=== PATIENT | female | born 2000 | race Hispanic/Latino ===

== ENCOUNTER 2025-07-11 17:56 | Inpatient (IN) | payer MEDICAID, OTHER ==
[~2025-07-11 17:56] MED LIST: Lidocaine 2% 10 ML INJ ONE
[2025-07-11] MEDS ORDERED: Diphenoxylate HCl/Atropine Tablet PO PRN (19:29)
[2025-07-11] MEDS ORDERED: Lidocaine 1% (PF) 30 ML VIAL SC PRN (19:29)
[2025-07-11] MEDS ORDERED: Ondansetron PF 4 MG/2 ML Vial IVP PRN (19:29)
[2025-07-11] MEDS ORDERED: Carboprost 250 MCG/ML AMP IM PRN (19:29)
[2025-07-11] MEDS ORDERED: Methylergonovine 0.2 MG/ML VIAL IM PRN (19:29)
[2025-07-11] MEDS ORDERED: Tranexamic Acid 1,000 MG/10 ML VIAL IVP PRN (19:29)
[2025-07-11] MEDS ORDERED: Acetaminophen 500 MG TAB PO PRN (19:29)
[2025-07-11] MEDS ORDERED: Calcium Gluc 4.6 MEQ/10 ML (100 MG/ML) SLOW IVP PRN (19:29)
[2025-07-11] MEDS ORDERED: Oxytocin 30 units/NS 500 ML 500 ML IV SCH ×2 (19:30)
[2025-07-11] MEDS ORDERED: HYDROcodone/Acetaminophen 5/325 mg Tablet PO PRN (19:34)
[2025-07-11] MEDS ORDERED: hydrALAZINE 20 MG/ML VIAL SLOW IVP PRN ×2 (19:34)
[2025-07-11] MEDS ORDERED: Ibuprofen 800 MG TAB PO PRN (19:34)
[2025-07-11 20:07] VITALS: BMI 33.8
[2025-07-11 20:17] LABS: Hematocrit 32.0 % (34.9-44.5); Hemoglobin 10.8 g/dL (12.0-15.5); Mean Corpuscular Hemoglobin 26.5 pg (27.0-33.0); Mean Corpuscular Volume 78.6 fL (81.6-98.3); Platelet Count 183 10x3/uL (150-450); Red Blood Cell (RBC) Count 4.07 10x6/uL (3.90-5.03); White Blood Cell (WBC) Count 8.00 10x3/uL (3.5-10.5)
[2025-07-11 20:28] LABS: ALT (SGPT) 10 U/L (Less than 34); AST (SGOT) 14 U/L (11-34); Albumin 2.7 g/dL (3.1-4.5); Alkaline Phosphatase 184 U/L (40-110); Anion Gap 15 mmol/L (10-20); BUN (Urea Nitrogen) 12 mg/dL (7.0-18.7); Bilirubin, Total 0.2 mg/dL (0.3-1.2); Calc. Creatinine Clearance 141 mL/min (70-130); Calcium 8.7 mg/dL (7.8-10.44); Carbon Dioxide 19 mmol/L (22-29); Chloride 107 mmol/L (98-107); Globulin 3.0 g/dL (2.4-3.5); Glucose 133 mg/dL (70-105); Potassium 4.2 mmol/L (3.5-5.1); Sodium 137 mmol/L (136-145)
[2025-07-11 21:42] LABS: Hep B Surf Ag - L&D Non-Reactive S/CO (NonReactive)
[2025-07-11 22:14] LABS: Syphilis Antibody Index 0.07 S/CO (<1.00 Non-Reactive)
[2025-07-12] MEDS ORDERED: Penicillin G Potassium 5 MILL.UNITS in Sodium Chloride 0.9% 100 ML IVPB SCH (06:00)
[2025-07-12] MEDS: hydrALAZINE 20 MG/ML VIAL SLOW IVP PRN (06:51)
[2025-07-12] MEDS: Penicillin G 2.5 MILL.units 2.5 MILL.UNITS in Premix 1 BAG IVPB SCH (16:00)
[2025-07-12] MEDS: fentaNYL/Ropivacaine Epidural 100 ML ONE (16:50)
[2025-07-12] MEDS ORDERED: Ondansetron PF 4 MG/2 ML Vial IVP PRN ×2 (17:47→23:31)
[2025-07-12] MEDS ORDERED: diphenhydrAMINE 50 MG/ML VIAL IVP PRN (17:47)
[2025-07-12] MEDS ORDERED: Communication Order-Pharmacy FS SCH (18:00)
[2025-07-12] MEDS ORDERED: fentaNYL 2 mcg/Ropivacaine 0.2% Epidural 100 ML CADD EPIDURAL SCH (18:00)
[2025-07-12] MEDS: Magnesium Sulfate 20 gm/500 ml 20 GM/500 ML BAG ONE ×2 (19:51)
[2025-07-12] MEDS: Penicillin G Potassium 5 MILL.UNITS VIAL ONE (19:51)
[2025-07-12] MEDS ORDERED: Magnesium Sulfate 20 gm/500 ml 4 GM/100 ML BAG IVPB SCH (20:15)
[2025-07-12] MEDS ORDERED: Lanolin Ointment 7 GM TUBE TOP PRN (23:31)
[2025-07-12] MEDS ORDERED: diphenhydrAMINE 25 MG CAP PO PRN (23:31)
[2025-07-12] MEDS ORDERED: hydrALAZINE 20 MG/ML VIAL SLOW IVP PRN ×2 (23:31)
[2025-07-12] MEDS ORDERED: Milk Of Magnesia 30 ML UDCUP PO PRN (23:31)
[2025-07-12] MEDS ORDERED: Bisacodyl 10 MG SUPP PR PRN (23:31)
[2025-07-12] MEDS ORDERED: Calcium Gluc 4.6 MEQ/10 ML (100 MG/ML) SLOW IVP PRN (23:31)
[2025-07-13] MEDS: Acetaminophen 325 MG TAB PO PRN (01:01)
[2025-07-13] MEDS: Ibuprofen 800 MG TAB PO SCH (04:10)
[2025-07-13] MEDS: Magnesium Sulfate 20 gm/500 ml 20 GM/500 ML BAG IVPB SCH (04:11)
[2025-07-13 05:20] LABS: ALT (SGPT) 10 U/L (Less than 34); AST (SGOT) 15 U/L (11-34); Albumin 2.2 g/dL (3.1-4.5); Alkaline Phosphatase 131 U/L (40-110); Anion Gap 13 mmol/L (10-20); BUN (Urea Nitrogen) 8 mg/dL (7.0-18.7); Bilirubin, Total 0.4 mg/dL (0.3-1.2); Calc. Creatinine Clearance 165 mL/min (70-130); Calcium 6.9 mg/dL (7.8-10.44); Carbon Dioxide 19 mmol/L (22-29); Chloride 105 mmol/L (98-107); Globulin 2.8 g/dL (2.4-3.5); Glucose 113 mg/dL (70-105); Magnesium 6.6 mg/dL (1.6-2.6); Potassium 4.1 mmol/L (3.5-5.1); Sodium 133 mmol/L (136-145)
[2025-07-13] MEDS: Ferrous Sulfate 325 MG TAB PO SCH (19:08)
[2025-07-14] MEDS: Benzocaine-Menthol 82.5 ML CAN TOP PRN (08:45)
[2025-07-14] MEDS: HYDROcodone/Acetaminophen 5/325 mg Tablet PO PRN (08:46)
[2025-07-14 15:38] VITALS: BP 120/60; TEMP 98.2
== END 2025-07-14 18:48 | disposition home or self-care (01) | DRG 806 ==
LOC: CSHLD 17:56 → CSHPP 07-13 23:25
PROVIDERS: ADMIT Family Medicine; ATTEND Family Medicine
PROC: 10E0XZZ Delivery of Products of Conception, External Approach (ICD-10-PCS; principal; 2025-07-12)
PROC: 10907ZC Drainage of Amniotic Fluid, Therapeutic from Products of Conception, Via Natural or Artificial Opening (ICD-10-PCS; 2025-07-12)
PROC: 0UQGXZZ Repair Vagina, External Approach (ICD-10-PCS; 2025-07-12)
DX: O48.0 Post-term pregnancy (principal); O71.4 Obstetric high vaginal laceration alone; Z37.0 Single live birth; O13.4 Gestational [pregnancy-induced] hypertension without significant proteinuria, complicating childbirth; Z3A.40 40 weeks gestation of pregnancy; O14.94 Unspecified pre-eclampsia, complicating childbirth
CPT/HCPCS: 36415; 51702; 80053; 83735; 85027; 86780; 86850; 86900; 86901; 87340; J0360; J2540; J3475